=== PATIENT | male | born 1970 | race Caucasian/White ===

== ENCOUNTER → 2025-04-27 08:51 | Outpatient (BNVA) | payer OTHER, SELFPAY | PROVIDERS: PCP Family Medicine; Visit Provider Family Medicine | DX: I10 Essential (primary) hypertension (principal); R35.1 Nocturia; R53.83 Other fatigue | CPT/HCPCS: 80053; 80061; 84153; 84443; 85025 ==

== ENCOUNTER 2025-05-03 08:59 | Outpatient (CLI) | payer OTHER, SELFPAY ==
--- NOTE | 2025-05-03 | ECG_ITS ---
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 Interpretive Statements Lung unchanged pre/post procedure; Intraprocedure shortess of breath; Symptoms resoled by discharge PROCEDURE: At the baseline, the patient's blood pressure was 147/92 with a heart rate of 79. The baseline electrocardiogram showed normal sinus rhythm with normal ST-Ts. Poor R wave progression. Possible old anteroseptal MO. Nonspecific ST-T changes in the inferior leads.. The patient exercised for 9 minutes on a standard Gary protocol. Patient attained a maximum heart rate of 143 beats per minute(85% of the maximum predicted heart rate) with a blood pressure at the peak exercise of 177/107 mm Hg. The EKG at the peak exercise revealed. Patient did not have any chest pain or any significant cardiac arrhythmias with the exercise During the recovery phase, there were no new changes. Blood pressure at the end of the recovery phase was 187/101 mm Hg with a heart rate of 99 per minute. CONCLUSION: 1. Nonspecific EKG response to treadmill exercise 2. No exercise-induced chest pain or cardiac arrhythmia 3. Hypertensive response to exercise 3. Fair exercise tolerance, attained a maximum of 10.2 METs Electronically Signed On 05-09-2025 22:37:45 CDT by Crystal Orr M.D. [email or web address]
--- NOTE | 2025-05-03 09:02 | NMCV_ITS ---
NM harvey perf SPECT r/s* [id number] Sukhjinder Krueger Age: 55 Gender: M : 1970 Exam Date: 05/03/2025 09:50 Ordering Phys: Maria Dolores Whalen DO Technologist: SILVERIO Sesay Exam Location: [facility] Indications: cp STRESS TEST [facility] IMAGE PROTOCOL Rest/Stress 1 Exercise Day Radiopharmaceutical Dose (mCi) Administration Site Administered by Rest: Tc-99m 10.9 IV Daniella Rodríguez, ORDER CLERK Sestamibi Stress:Tc-99m 33 IV Daniella Rodríguez, ORDER CLERK Sestamibi Rest: 03-May-2025 60 Discovery 630 Stress: 03-May-2025 15 Discovery 630 Radiopharmaceutical was injected at 85 % maximum heart rate. Images obtained in supine and prone position. SPECT RESULTS Technical Quality: Good Raw Data Analysis: Normal Image Corrections: No attenuation or motion correction applied Summed Stress Score: 0 Summed Rest Score: 1 Summed Difference Score: 0 PERFUSION FINDINGS Fairly uniform myocardial tracer uptake with no significant Perfusion abnormalities FUNCTIONAL RESULTS (calculated via Gated SPECT) Stress Image LV EF (%): 58 Stress EDV (mL):123 TID: 0.82 Stress ESV (mL):52 FUNCTIONAL FINDINGS: Segmental wall motion analysis revealing no gross wall motion abnormalities IMPRESSIONS 1. Myocardial perfusion imaging revealing fairly uniform myocardial tracer uptake 2. Normal LV ejection fraction of 58%. 3. LV wall motion analysis revealing no gross wall motion abnormalities. 4. Normal LV volume Low probability for coronary ischemia, based on the above findings No similar previous studies are available for comparison Dr Crytsal Orr MD [facility] (Electronically Signed) Final Date: 03 May 2025 11:42 S
[2025-05-03 09:17] VITALS: BMI 42.8
[2025-05-03 10:45] VITALS: BP 187/98; PULSE 96
== END 2025-05-03 09:00 | disposition home or self-care (01) ==
LOC: CDL 09:00
PROVIDERS: PCP Family Medicine; Visit Provider Family Medicine
DX: R06.09 Other forms of dyspnea (principal); R93.1 Abnormal findings on diagnostic imaging of heart and coronary circulation
CPT/HCPCS: 36415; 78452; 93017; 96374; A9500

== ENCOUNTER 2025-05-18 13:30 | Outpatient (CLI) | payer OTHER, SELFPAY | END 2025-05-18 13:31 | disposition home or self-care (01) | LOC: RT 13:31 | PROVIDERS: PCP Family Medicine; Visit Provider Family Medicine | DX: R06.09 Other forms of dyspnea (principal) | CPT/HCPCS: 94010; 94726; 94729 ==

== ENCOUNTER 2025-06-08 13:11 | Outpatient (CLI) | payer OTHER, SELFPAY ==
--- NOTE | 2025-06-08 14:15 | USCV_ITS ---
Sukhjinder Krueger Age: 55 Gender: M : 1970 Exam Date: 06/08/2025 14:02 Ordering Phys: Maria Dolores Whalen DO Technologist: NIVIA [place] [facility] [place] Indication: NOYOLA BP: 128 / 82 HR: 72 Rhythm: Sinus Technical Quality: Adequate MEASUREMENTS (Male / Female) Normal Values 2D ECHO LV Diastolic Diameter PLAX 4.9 cm 4.2 - 5.9 / 3.9 - 5.3 cm IVS Diastolic Thickness 1.4 cm 0.6 - 1.0 / 0.6 - 0.9 cm IVS Systolic Thickness 1.8 cm LVPW Diastolic Thickness 1.4 cm 0.6 - 1.0 / 0.6 - 0.9 cm LVPW Systolic Thickness 1.7 cm LVOT Diameter 2.0 cm LV Ejection Fraction 2D Teich 54.2 % LV Ejection Fraction MOD 4C 53.3 % LV Ejection Fraction MOD 2C 67.7 % LV Ejection Fraction 2C AL 69.8 % LA Diameter 4.1 cm RA Systolic Volume 4C AL 43.7 ml RA Systolic Volume 4C MOD 36.9 ml Aorta at Sinotubular Diameter 2.7 cm M-MODE LA Ao Ratio MM 1.4 AV Cusp Separation MM 1.9 cm DOPPLER AV Peak Velocity 111.0 cm/s LVOT Peak Velocity 78.0 cm/s AV Area Cont Eq vti 2.3 cm squared AV Area Cont Eq pk 2.3 cm squared MV Peak Velocity 95.0 cm/s MV Area PHT 4.8 cm squared Mitral E to A Ratio 0.8 TR Peak Velocity 75.0 cm/s TR Peak Gradient 2.3 mmHg TV Peak E Velocity 66.0 cm/s PV Peak Velocity 114.0 cm/s FINDINGS Left Ventricle Normal left ventricular size and systolic function, EF 54% . Normal diastolic function. Mild left ventricular hypertrophy. Right Ventricle Normal right ventricular size and systolic function. Right Atrium Normal right atrial size. Left Atrium Normal left atrial size. Mitral Valve Structurally normal mitral valve. No mitral valve stenosis. No mitral valve regurgitation. Aortic Valve Aortic valve not well visualized. No aortic valve stenosis. No aortic valve regurgitation. Tricuspid Valve Trace tricuspid valve regurgitation. Normal pulmonary pressure Pulmonic Valve Mild pulmonary valve regurgitation. Pericardium No pericardial effusion. Aorta Normal size aortic root and proximal ascending aorta. IVC Normal IVC dimension with >50% respiratory change of the inferior vena cava. CONCLUSIONS Normal left ventricular size and function with an ejection fraction of 54%. Normal RV size and function Normal estimated pulmonary pressure No significant valvular abnormalities Junior Mcdaniel MD, FACC (Electronically Signed) Final Date: 09 June 2025 15:10 S
== END 2025-06-08 13:12 | disposition home or self-care (01) ==
LOC: RAD 13:12
PROVIDERS: PCP Family Medicine; Visit Provider Family Medicine
DX: R06.09 Other forms of dyspnea (principal); I36.1 Nonrheumatic tricuspid (valve) insufficiency; I37.1 Nonrheumatic pulmonary valve insufficiency
CPT/HCPCS: 93306